=== PATIENT | female | born 1960 | race Caucasian/White ===

== ENCOUNTER 2018-09-21 19:09 | Emergency (ER) | payer BC, OTHER, SELFPAY ==
[2018-09-21] MEDS ORDERED: KETOROLAC 30 MG/ML INJ ONE (20:04)
[2018-09-21] MEDS ORDERED: HYDROCODONE/APAP 10/325 TAB ONE (20:04)
--- NOTE | 2018-09-21 21:35 | RAD REPORT ---
EXAM DESCRIPTION: RAD - Elbow Right 2 View - 09/21/2018 8:16 pm CLINICAL HISTORY: Elbow pain FINDINGS: Limited two view series obtained. Exam is limited secondary to difficulty with patient positioning. No gross fracture or dislocation seen
--- NOTE | 2018-09-21 21:36 | ER ---
Nurse's Notes [facility] Name: Adina Pringle Age: 58 yrs Sex: Female : 1960 Arrival Date: 09/21/2018 Time: 19:14 Bed 16 Private MD: Jh Peng H Diagnosis: Colles' fracture of right radius Presentation: 09/21 19:22 Presenting complaint: Patient states: Patient fell off of her grandsons hover board aj today just [employer]. Reports pain to right forearm, wrist, and elbow. Care prior to arrival: None. Mechanism of Injury: Fall from standing position. Trauma event details: Injury occurred in the [facility], Injury occurred: at home. Injury occurred: September 21, 2018 Injury occurred at: 19:00. 19:22 Acuity: KEN 4 19:22 Method Of Arrival: Ambulatory 19:40 Transition of care: patient was not received from another setting of care. Onset of cc3 symptoms was September 21, 2018. Risk Assessment: Do you want to hurt yourself or someone else? Patient reports no desire to harm self or others. Initial Sepsis Screen: Does the patient meet any 2 criteria? No. Patient's initial sepsis screen is negative. Does the patient have a suspected source of infection? No. Patient's initial sepsis screen is negative. 19:40 Onset of symptoms was September 21, 2018. cc3 Trauma Activation: Not Applicable Physician: ED Physician; Name: ; Notified At: ; Arrived At: Physician: General Surgeon; Name: ; Notified At: ; Arrived At: Physician: Radiology; Name: ; Notified At: ; Arrived At: Physician: Respiratory; Name: ; Notified At: ; Arrived At: Physician: Lab; Name: ; Notified At: ; Arrived At: Historical: - Allergies: 19:26 No Known Allergies; aj - Home Meds: 19:26 None [Active]; aj - PMHx: 19:26 None; aj - PSHx: 19:26 ; aj - Immunization history: Last tetanus immunization: - up to date. - Social history:: Smoking status: Patient/guardian denies using tobacco. - Ebola Screening: : Patient negative for fever greater than or equal to 101.5 degrees Fahrenheit, and additional compatible Ebola Virus Disease symptoms Patient denies exposure to infectious person Patient denies travel to an Ebola-affected area in the 21 days before illness onset No symptoms or risks identified at this time. Screenin:40 Abuse screen: Denies threats or abuse. Denies injuries from another. Nutritional cc3 screening: No deficits noted. Tuberculosis screening: No symptoms or risk factors identified. Fall Risk Ambulatory Aid- None/Bed Rest/Nurse Assist (0 pts). Gait- Normal/Bed Rest/Wheelchair (0 pts) Mental Status- Oriented to own ability (0 pts). Primary Survey: 19:22 NO uncontrolled hemorrhage observed. Breathing/Chest: Respiratory pattern: regular, aj Respiratory effort: spontaneous, unlabored, Breath sounds: clear, bilaterally. Chest inspection: symmetrical rise and fall of the chest. Circulation: Skin color: pink, Skin temperature: warm, dry. Disability Alert. 19:40 Reassessment Breathing/Chest Respiratory pattern Regular Respiratory effort Spontaneous cc3 Unlabored Breath sounds Clear Chest inspection Symmetrical. 19:40 Exposure/Environment: A warming method has been applied: A warm blanket has been cc3 provided to the patient. Reassessment Airway Airway Patent Circulation Temperature Warm Disability Alert. Secondary Survey: 19:40 HEENT: Head No injury/deformity Face No injury/deformity Eyes: No injury or deformity cc3 noted. to bilateral eyes. Ears: clear bilaterally. Nose: clear to bilateral nares. Throat: No injury or deformity noted. is clear with gag reflex present. Gastrointestinal: Abdomen is soft, flat. : No signs and/or symptoms were reported regarding the genitourinary system. Musculoskeletal: Circulation, motion, and sensation intact. Range of motion: limited in right antecubital area and right hand and dorsal aspect of right wrist and right wrist and dorsal aspect of right forearm and right arm and right elbow. Assessment: 19:22 General: Appears in no apparent distress. comfortable, Behavior is calm, cooperative, aj appropriate for age. Pain: Complains of pain in right elbow. Neuro: Level of Consciousness is awake, alert, obeys commands, Oriented to person, place, time, situation, Appropriate for age. Respiratory: Airway is patent Respiratory effort is even, unlabored, Respiratory pattern is regular, symmetrical. Derm: Skin is intact, is healthy with good turgor, Skin is pink, warm \T\ dry. normal. Musculoskeletal: Reports pain in dorsal aspect of right forearm, right wrist and right elbow. 20:23 Reassessment: Patient appears in no apparent distress at this time. Patient and/or cc3 family updated on plan of care and expected duration. Pain level reassessed. Patient is alert, oriented x 3, equal unlabored respirations, skin warm/dry/pink. 21:18 Reassessment: Patient appears in no apparent distress at this time. Patient and/or cc3 family updated on plan of care and expected duration. Pain level reassessed. Patient is alert, oriented x 3, equal unlabored respirations, skin warm/dry/pink. 22:10 Reassessment: Patient appears in no apparent distress at this time. Patient and/or cc3 family updated on plan of care and expected duration. Pain level reassessed. Patient is alert, oriented x 3, equal unlabored respirations, skin warm/dry/pink. Dr. Sanchez discharged the patient home with prescription given. No IV cannula in situ. Patient left ER vitally stable and ambulatory. Vital Signs: 19:22 BP 134 / 93; Pulse 99; Resp 20; Temp 97.6; Pulse Ox 100% on R/A; Weight 77.11 kg; aj Height 5 ft. 4 in. (162.56 cm); 20:18 BP 135 / 87; Pulse 89; Resp 19 S; Pulse Ox 100% on R/A; cc3 21:50 BP 129 / 86; Pulse 91; Resp 19 S; Pulse Ox 100% on R/A; cc3 19:22 Body Mass Index 29.18 (77.11 kg, 162.56 cm) aj [place] Coma Score: 19:22 Eye Response: spontaneous(4). Verbal Response: oriented(5). Motor Response: obeys aj commands(6). Total: 15. Trauma Score (Adult): 19:22 Eye Response: spontaneous(1); Verbal Response: oriented(1); Motor Response: obeys aj commands(2); Systolic BP: > 89 mm Hg(4); Respiratory Rate: 10 to 29 per min(4); [place] Score: 15; Trauma Score: 12 ED Course: 19:14 Patient arrived in ED. es 19:14 Jh Peng DO is Private Physician. es 19:24 Triage completed. aj 19:26 Arm band placed on left wrist. Patient placed in an exam room. aj 19:27 Deacon Sanchez MD is Attending Physician. tw4 19:40 Bettina Jeffrey is Primary Nurse. cc3 19:40 Patient has correct armband on for positive identification. Bed in low position. Call cc3 light in reach. Side rails up X 1. Pulse ox on. NIBP on. 19:40 Patient maintains SpO2 saturation greater than 95% on room air. cc3 19:40 Thermoregulation: warm blanket given to patient. cc3 20:16 Elbow Right 2 View XRAY In Process Unspecified. EDMS 20:16 Wrist Right 2 View XRAY In Process Unspecified. EDMS 21:35 Jh Peng DO is Referral Physician. tw4 21:35 Mc Bonilla MD is Referral Physician. tw4 22:10 Orthoglass splint: Sugar tong splint applied on right arm. cc3 22:10 No provider procedures requiring assistance completed. Patient did not have IV access cc3 during this emergency room visit. Administered Medications: 19:55 Drug: [place] 10 mg-325 mg 1 tabs Route: PO; cc3 20:15 Follow up: Response: No adverse reaction; Pain is decreased cc3 20:00 Drug: TORadol 60 mg Route: IM; Site: left gluteus; cc3 21:30 Follow up: Response: No adverse reaction; Pain is unchanged, physician notified cc3 21:48 CANCELLED (Duplicate Order): morphine 4 mg IVP once ea 21:48 Drug: morphine 4 mg Route: IM; Site: left deltoid; ea 22:10 Follow up: Response: No adverse reaction; Pain is decreased cc3 Intake: 19:55 PO: 250ml; Total: 250ml. cc3 Outcome: 21:35 Discharge ordered by . tw4 22:10 Discharged to home ambulatory, with family. cc3 22:10 Condition: stable 22:10 Discharge instructions given to patient, family, Instructed on discharge instructions, follow up and referral plans. medication usage, Demonstrated understanding of instructions, follow-up care, medications, Prescriptions given X 2. 22:10 for observationPatient's length of stay extended due to cc3 22:13 Patient left the ED. cc3 Signatures: Dispatcher [employer] Alma Hood RN RN aj Salyer, Edna es Antunez, Elena, RN RN ea Wadley, Terrence MD MD tw4 Bettina Jeffrey cc3
--- NOTE | 2018-09-21 21:37 | EDPHYS ---
Physician Documentation [facility] Name: Adina Pringle Age: 58 yrs Sex: Female : 1960 Arrival Date: 09/21/2018 Time: 19:14 Bed 16 Private MD: Jh Peng H ED Physician Deacon Sanchez HPI: 09/21 21:20 This 58 yrs old Female presents to ER via Ambulatory with complaints of Fall tw4 Injury, Elbow Injury, Arm Injury. 21:20 Details of fall: The patient fell from an upright position, while skating. Onset: The tw4 symptoms/episode began/occurred just prior to arrival. Associated injuries: The patient sustained dorsal aspect of right wrist. Severity of symptoms: At their worst the symptoms were moderate, in the emergency department the symptoms have improved. The patient has not experienced similar symptoms in the past. Historical: - Allergies: 19:26 No Known Allergies; aj - Home Meds: 19:26 None [Active]; aj - PMHx: 19:26 None; aj - PSHx: 19:26 ; aj - Immunization history: Last tetanus immunization: - up to date. - Social history:: Smoking status: Patient/guardian denies using tobacco. - Ebola Screening: : Patient negative for fever greater than or equal to 101.5 degrees Fahrenheit, and additional compatible Ebola Virus Disease symptoms Patient denies exposure to infectious person Patient denies travel to an Ebola-affected area in the 21 days before illness onset No symptoms or risks identified at this time. ROS: 21:20 Constitutional: Negative for fever, chills, and weight loss, Eyes: Negative for injury, tw4 pain, redness, and discharge, Cardiovascular: Negative for chest pain, palpitations, and edema, Respiratory: Negative for shortness of breath, cough, wheezing, and pleuritic chest pain, Abdomen/GI: Negative for abdominal pain, nausea, vomiting, diarrhea, and constipation. 21:20 MS/extremity: Positive for injury or acute deformity, contusion, decreased range of motion, of the right hand and right arm. Exam: 21:20 Constitutional: This is a well developed, well nourished patient who is awake, alert, tw4 and in no acute distress. Head/Face: Normocephalic, atraumatic. Chest/axilla: Normal chest wall appearance and motion. Nontender with no deformity. No lesions are appreciated. Cardiovascular: Regular rate and rhythm with a normal S1 and S2. No gallops, murmurs, or rubs. Normal PMI, no JVD. No pulse deficits. Respiratory: Lungs have equal breath sounds bilaterally, clear to auscultation and percussion. No rales, rhonchi or wheezes noted. No increased work of breathing, no retractions or nasal flaring. Abdomen/GI: Soft, non-tender, with normal bowel sounds. No distension or tympany. No guarding or rebound. No evidence of tenderness throughout. 21:20 Musculoskeletal/extremity: Extremities: noted in the dorsal aspect of right wrist: decreased ROM, pain, noted in the right antecubital area and right elbow: decreased ROM, ROM: limited active range of motion due to pain, limited passive range of motion due to pain, Circulation is intact in all extremities. Compartment Syndrome exam of affected extremity: is normal. Vital Signs: 19:22 BP 134 / 93; Pulse 99; Resp 20; Temp 97.6; Pulse Ox 100% on R/A; Weight 77.11 kg; aj Height 5 ft. 4 in. (162.56 cm); 20:18 BP 135 / 87; Pulse 89; Resp 19 S; Pulse Ox 100% on R/A; cc3 21:50 BP 129 / 86; Pulse 91; Resp 19 S; Pulse Ox 100% on R/A; cc3 19:22 Body Mass Index 29.18 (77.11 kg, 162.56 cm) [place] Coma Score: 19:22 Eye Response: spontaneous(4). Verbal Response: oriented(5). Motor Response: obeys aj commands(6). Total: 15. Trauma Score (Adult): 19:22 Eye Response: spontaneous(1); Verbal Response: oriented(1); Motor Response: obeys aj commands(2); Systolic BP: > 89 mm Hg(4); Respiratory Rate: 10 to 29 per min(4); [place] Score: 15; Trauma Score: 12 MDM: 19:27 Patient medically screened. tw4 21:34 Differential diagnosis: closed head injury, contusion, multiple trauma, sprain, strain. tw4 Data reviewed: vital signs, nurses notes. Counseling: I had a detailed discussion with the patient and/or guardian regarding: lab results, radiology results. Medication response: Toradol markedly relieved the patient's pain. Response to treatment: the patient's symptoms have markedly improved after treatment. Response to treatment: and as a result, I will discharge patient, administer pain medication. Special discussion: I discussed with the patient/guardian in detail that at this point there is no indication for admission to the hospital. It is understood, however, that if the symptoms persist or worsen the patient needs to return immediately for re-evaluation. 09/21 19:38 Order name: Elbow Right 2 View XRAY tw4 09/21 19:38 Order name: Wrist Right 2 View XRAY tw4 Administered Medications: 19:55 Drug: [place] 10 mg-325 mg 1 tabs Route: PO; cc3 20:15 Follow up: Response: No adverse reaction; Pain is decreased cc3 20:00 Drug: TORadol 60 mg Route: IM; Site: left gluteus; cc3 21:30 Follow up: Response: No adverse reaction; Pain is unchanged, physician notified cc3 21:48 CANCELLED (Duplicate Order): morphine 4 mg IVP once ea 21:48 Drug: morphine 4 mg Route: IM; Site: left deltoid; ea 22:10 Follow up: Response: No adverse reaction; Pain is decreased cc3 Disposition: 09/21/18 21:35 Discharged to Home. Impression: Colles' fracture of right radius. - Condition is Stable. - Discharge Instructions: Wrist Fracture Treated With Immobilization, Wrist Splint. - Prescriptions for Ibuprofen 800 mg Oral Tablet - take 1 tablet by ORAL route every 8 hours As needed take with food; 30 tablet. Tylenol- Codeine #3 300-30 mg Oral Tablet - take 2 tablet by ORAL route every 6 hours As needed; 6 tablet. - Medication Reconciliation Form, Thank You Letter, Antibiotic Education, Prescription Opioid Use form. - Follow up: Jh Peng DO; When: Upon discharge from the Emergency Department; Reason: If symptoms return, Recheck today's complaints, Continuance of care. Follow up: Mc Bonilla MD; When: Upon discharge from the Emergency Department; Reason: If symptoms return, Recheck today's complaints, Continuance of care. - Problem is new. - Symptoms have improved. Signatures: Dispatcher [employer] Alma Hood, RN Padmini Jin, RN RN Deacon Dickson MD MD tw4 Bettina Jeffrey cc3 Corrections: (The following items were deleted from the chart) 21:48 21:47 morphine 4 mg IVP once ordered. john lopez 22:13 21:35 09/21/2018 21:35 Discharged to Home. Impression: Colles' fracture of right cc3 radius. Condition is Stable. Forms are Medication Reconciliation Form, Thank You Letter, Antibiotic Education, Prescription Opioid Use. Follow up: Jh Peng; When: Upon discharge from the Emergency Department; Reason: If symptoms return, Recheck today's complaints, Continuance of care. Follow up: Mc Bonilla; When: Upon discharge from the Emergency Department; Reason: If symptoms return, Recheck today's complaints, Continuance of care. Problem is new. Symptoms have improved. tw4
--- NOTE | 2018-09-21 21:49 | RAD REPORT ---
EXAM DESCRIPTION: RAD - Wrist Right 2 View - 09/21/2018 8:16 pm CLINICAL HISTORY: Right wrist pain status post injury FINDINGS: Comminuted impacted moderately displaced fracture involves the distal radius. Avulsion fracture of the ulnar styloid process Evaluation for dislocation is limited secondary to suboptimal positioning. Repeat true lateral view recommended for further evaluation
[2018-09-21] MEDS ORDERED: MORPHINE 4 MG/ML SYR ONE (21:51)
== END 2018-09-21 22:13 | disposition home or self-care (01) ==
LOC: ER 19:09
PROC: 2W3CX1Z Immobilization of Right Lower Arm using Splint (ICD-10-PCS; principal; 2018-09-21)
DX: S52.531A Colles' fracture of right radius, initial encounter for closed fracture (principal); S59.291A Other physeal fracture of lower end of radius, right arm, initial encounter for closed fracture; W19.XXXA Unspecified fall, initial encounter; Y93.21 Activity, ice skating; Y92.9 Unspecified place or not applicable
CPT/HCPCS: 96372; 99284

== ENCOUNTER 2018-09-24 10:49 | Day surgery (SDC) | payer BC ==
[2018-09-23 16:07] LABS: Potassium 3.7 mmol/L (3.5-5.1)
[2018-09-23 16:11] LABS: Absolute Lymphocytes (CBC) 2.5 K/uL (0.7-4.9); Absolute Monocytes 0.6 K/uL (0.1-1.3); Absolute Neutrophil 7.2 K/uL (1.8-8.0); Basophils % 0.7 % (0-1.3); Eosinophils % 1.4 % (0-4.4); Hematocrit 34.7 % (36.0-45.0); Lymphocytes % 23.8 % (15.3-44.8); MPV 7.3 fL (7.6-11.3); Monocytes % 5.6 % (3.3-12.3); RBC Red Blood Cell Count 3.73 M/uL (3.86-4.86)
[2018-09-24] MEDS ORDERED: Ringers Lactate 1,000 ML IV ONE ×2 (11:30→14:29)
[2018-09-24] MEDS ORDERED: CEFAZOLIN 1GM (PREMIX IV) 1 GM/50 ML BAG ONE (11:30)
[2018-09-24] MEDS ORDERED: PROPOFOL 200 MG/20 ML VIAL IV ONE (12:20)
[2018-09-24] MEDS ORDERED: FENTANYL CITR 100 MCG/2 ML ONE ×3 (12:20→13:10)
[2018-09-24] MEDS ORDERED: LIDOCAINE 2% MPF 5 ML VIAL ONE (12:21)
[2018-09-24] MEDS ORDERED: ONDANSETRON 4 MG/2 ML VIAL ONE (12:21)
[2018-09-24] MEDS ORDERED: MIDAZOLAM HCL 2 MG/2 ML INJ ONE (12:23)
[2018-09-24] MEDS ORDERED: MORPHINE 10 MG/ML VIAL ONE (13:20)
--- NOTE | 2018-09-24 14:03 | P.BOP ---
Preoperative diagnosis: right intraarticular distal radius FX at least 3 part Postoperative diagnosis: same Primary procedure: ORIF right distal radius FX Estimated blood loss: 20 ccs Anesthesia: General Complications: None Transferred to: Recovery Room Condition: Good
[2018-09-24] MEDS: MEPERIDINE HCL 50 MG/ML AMP ONE ×4 (14:09→14:23)
[2018-09-24] MEDS ORDERED: KETOROLAC 30 MG/ML INJ ONE (14:16)
[2018-09-24] MEDS: HYDROMORPHONE HCL 2 MG/ML inj ONE ×4 (14:27→14:42)
--- NOTE | 2018-09-24 14:34 | RAD REPORT ---
EXAM DESCRIPTION: RAD - Wrist Right 2 View - 09/24/2018 2:27 pm CLINICAL HISTORY: ORIF RIGHT WRIST Pain COMPARISON: Wrist Right 2 View dated 09/21/2018 FINDINGS: Fluoroscopic imaging of the right wrist is submitted as part of an ORIF procedure. Detail s of the procedure not available. Total fluoroscopy time 2.1 minutes.
[2018-09-24] MEDS ORDERED: MEPERIDINE HCL 50 MG/ML AMP ONE (14:56)
[2018-09-24] MEDS ORDERED: MEPERIDINE HCL 25 MG/0.5 ML ONE (14:56)
[2018-09-24] MEDS ORDERED: HYDROCODONE/APAP 5/325 MG TAB ONE (16:03)
--- NOTE | 2018-09-25 00:46 | OP ---
Date of Procedure: 09/24/2018 Surgeon: Mc Bonilla MD Preoperative Diagnosis: Right distal radius fracture with base of ulnar styloid fracture. The intra -articular portion of the radial fracture is at least 3 pieces. Operation: Open reduction and internal fixation of multi-part, at least three-part, distal radius in tra-articular fracture using the [place] 2 distal radius. Estimated Blood Loss: 20 cc. Complications: There were no complications. Specimen: No pathology specimens sent. Indication For Operation: Ms. Pringle is a patient who unfortunately fell on [address], injuring her right upper extremity. She was seen in the emergency department where x-rays were taken, which demo nstrated a displaced intra-articular distal radius fracture with a corresponding ulnar styloid fractu re. Risks, benefits, and alternatives to open reduction and internal fixation or other methods of tr eating this had been discussed with the patient and family. They stated they understand things as pr esented and wished to proceed. Description Of Procedure: The patient was taken to the operating room and placed in the supine posit ion. General anesthesia was obtained by staff. Following this, a well-padded tourniquet was placed on superior right arm. Right upper extremity was then prepped and draped in the usual sterile fashio n for the procedure. The C-arm was brought in, and a reduction maneuver was done, which does demonst rate that the fracture does elevate with simple ligamentotaxis which is fortunate. Standard volar ap proach of Rey was then taken down carefully through skin and soft tissues, meticulous hemostasis be ing maintained using bipolar electrocautery. This leads to the tendon of the flexor carpi radialis. This was then shifted gently radialward to protect the radial artery. The underlying sheath was the n exploited. The muscle belly of the flexor pollicis longus was encountered and shifted ulnarly to p rotect the median nerve. This allowed for visualization of the fracture as well as the pronator quad ratus. The pronator quadratus did have quite a bit of soft tissue damage and was divided at its mids ubstance down the shaft and gently reflected off the volar aspect of the radius. This allowed for ex cellent visualization, and a standard closed reduction maneuver as well as supplementing this with a levering using a [place] elevator then was used to establish a near-anatomic reduction. This was follo wed by placement of the plate visually using a shaft screw. This appeared to be well-positioned. Th e remaining distal tags were then placed without difficulty, measured to be appropriate length, and d id appear to maintain good reduction of the distal radius. None of the screws appeared to be intra-a rticular. Following this, 2 more shaft screws were then placed. The original compressive screw was then removed and replaced with a slightly shorter screw until the screws were correct length. Biplan ar C-arm and radiography revealed a near-anatomic reduction of distal radius with the plate appearing to be appropriately placed. The screws were checked to ensure that they were down, and the wound wa s irrigated. The tourniquet was dropped. There was found to be no significant bleeding. The skin w as then closed using interrupted 3-0 nylon sutures in both standard fashion as well as horizontal mat tress. Adaptic as well as 4x4s were then placed. Generous amounts of soft roll were used, and a sug ar-tong splint was then applied. It was held in place until it dried. The cap refill was good. The patient was then awakened and taken to recovery room in good condition. No complications. /LESLIE Voice ID: [id number] Report ID: [id number]
== END 2018-09-24 16:20 | disposition home or self-care (01) ==
LOC: OR 10:49
PROVIDERS: ATTEND Orthopaedic Surgery
PROC: 0PSH04Z Reposition Right Radius with Internal Fixation Device, Open Approach (ICD-10-PCS; principal; 2018-09-24 12:30)
DX: S52.571A Other intraarticular fracture of lower end of right radius, initial encounter for closed fracture (principal); W19.XXXA Unspecified fall, initial encounter; E78.00 Pure hypercholesterolemia, unspecified; Z87.891 Personal history of nicotine dependence
CPT/HCPCS: 36415; 80048; 85025; J0690; J1170; J2175; J2250; J2405; J2704; J3010